=== PATIENT | male | born 1970 | race Caucasian/White ===

== ENCOUNTER 2020-02-11 07:39 | Outpatient (REF) | payer OTHER, SELFPAY | END 2020-02-11 07:40 | disposition home or self-care (01) | LOC: HO.LAB 07:39 | PROVIDERS: PCP Emergency Medicine; Visit Provider Internal Medicine | DX: Z20.828 Contact with and (suspected) exposure to other viral communicable diseases (principal) | CPT/HCPCS: C9803; U0003 ==

== ENCOUNTER → 2022-11-14 09:19 | Outpatient (BNVA) | payer OTHER, SELFPAY | PROVIDERS: PCP Emergency Medicine; Visit Provider Physician Assistant Medical | DX: S52.614A Nondisplaced fracture of right ulna styloid process, initial encounter for closed fracture (principal); W17.2XXA Fall into hole, initial encounter; M25.811 Other specified joint disorders, right shoulder | CPT/HCPCS: 99203 ==